=== PATIENT | male | born 1950 ===

== ENCOUNTER 2018-03-08 22:39 | Inpatient (IN) | payer MEDICARE ==
[2018-03-08 22:39] VITALS: BMI 32.5
--- NOTE | 2018-03-08 23:39 | ED PDOC ---
HPI: Psych/Substance Abuse <Miryam,Barb Y - Last Filed: 03/09/18 02:32> Chief Complaint (Provider): paranoia Onset/Duration Of Symptoms: Sudden Onset Current Symptoms Are (Timing): Still Present Additional Complaint(s): Pt is poor historian due to flight of ideas and tangential thought Presents today worried about someone trying to come after him for money Denies suicidal or homicidal ideation No psychiatric history <She Willett - Last Filed: 03/09/18 10:42> Time Seen by Provider: 03/08/18 22:58 Chief Complaint (Nursing): Psychiatric Evaluation Past Medical History Vital Signs: Last Vital Signs Temp 98.3 F 03/08/18 22:42 Pulse 90 03/08/18 22:42 Resp 18 03/08/18 22:42 BP 142/89 03/08/18 22:42 Pulse Ox 98 03/09/18 00:29 <Barb Witt Y - Last Filed: 03/09/18 02:32> Reviewed: Historical Data, Nursing Documentation, Vital Signs Vital Signs: Last Vital Signs Temp 98.3 F 03/08/18 22:42 Pulse 90 03/08/18 22:42 Resp 18 03/08/18 22:42 BP 142/89 03/08/18 22:42 Pulse Ox 98 03/08/18 22:42 - Medical History PMH: Arthritis (right knee), Diabetes, Gastritis, HTN, Hypercholesterolemia, Chronic Kidney Disease (renal insufficiency) - Surgical History Surgical History: Endoscopy - Family History Family History: States: Unknown Family Hx - Social History Current smoker - smoking cessation education provided: No Alcohol: Occasional Drugs: Denies - Immunization History Hx Tetanus Toxoid Vaccination: No Hx Influenza Vaccination: No Hx Pneumococcal Vaccination: Yes <She Willett - Last Filed: 03/09/18 10:42> - Home Medications Home Medications: Ambulatory Orders Medication Instructions Recorded Allopurinol [Zyloprim] 100 mg PO DAILY 02/22/18 Aspirin [Ecotrin] 81 mg PO DAILY 02/22/18 Ergocalciferol (Vitamin D2) 50,000 unit PO DAILY 02/22/18 [Vitamin D2] Gabapentin 300 mg PO Q12 02/22/18 Icosapent Ethyl [Vascepa] 1 gm PO BID 05/31/18 Insulin Glargine,Hum.rec.anlog 20 unit SQ ACB 02/22/18 [Adrianeaglana Roepen U-100] Loratadine [Claritin] 10 mg PO DAILY PRN 02/22/18 Simvastatin 5 mg PO DAILY 02/22/18 Valsartan [Diovan] 320 mg PO DAILY 02/22/18 Esomeprazole Sodium [Nexium I.v] 40 mg PO DAILY 03/09/18 Omeprazole [Omeprazole] 20 mg PO DAILY 03/09/18 Tamsulosin [Flomax] 0.4 mg PO DAILY 03/09/18 - Allergies Allergies/Adverse Reactions: Allergies Allergy/AdvReac Type Severity Reaction Status Date / Time No Known Allergies Allergy Verified 09/10/14 12:09 Review of Systems ROS Statement: Except As Marked, All Systems Reviewed And Found Negative Review Of Systems: ROS cannot be obtained secondary to pt's inabilty to answer questions. <She Willett J - Last Filed: 03/09/18 10:42> Physical Exam - Reviewed Nursing Documentation Reviewed: Yes Vital Signs Reviewed: Yes - Physical Exam Appears: Positive for: In Acute Distress (acute psychiatric distress) Head Exam: Positive for: ATRAUMATIC, NORMOCEPHALIC Skin: Positive for: Warm, Dry Eye Exam: Positive for: EOMI, PERRL ENT: Negative for: Pharyngeal Erythema, Tonsillar Exudate Neck: Positive for: Painless ROM, Supple Cardiovascular/Chest: Positive for: Regular Rate, Rhythm, Chest Non Tender, Edema. Negative for: Murmur Respiratory: Positive for: Normal Breath Sounds. Negative for: Accessory Muscle Use, Wheezing, Respiratory Distress Gastrointestinal/Abdominal: Positive for: Soft. Negative for: Tenderness, Mass , Distended, Guarding Back: Positive for: Normal Inspection. Negative for: Decreased ROM Extremity: Positive for: Normal ROM, Pedal Edema. Negative for: Calf Tenderness , Deformity Lymphatic: Negative for: Adenopathy Neurologic/Psych: Positive for: Alert, Oriented (x2), Mood/Affect (excited mood and anxious affect). Negative for: Motor/Sensory Deficits <She Willett - Last Filed: 03/09/18 10:42> - Laboratory Results Result Diagrams: 03/08/18 23:51 03/08/18 23:51 <Barb Witt - Last Filed: 03/09/18 02:32> - Laboratory Results Result Diagrams: 03/08/18 23:51 03/09/18 08:28 - ECG O2 Sat by Pulse Oximetry: 98 Pulse Ox Interpretation: Normal - Progress ED Course And Treament: EXAM: CT Head Without Intravenous Contrast EXAM DATE/TIME: 03/08/2018 11:16 PM CLINICAL HISTORY: 68 years old, male; Signs and symptoms; Altered mental status/memory loss TECHNIQUE: Axial computed tomography images of the head/brain without intravenous contrast. All CT scans at this facility use one or more dose reduction techniques, viz.: automated exposure control; ma/kV adjustment per patient size (including targeted exams where dose is matched to indication; i.e. head); or iterative reconstruction technique. COMPARISON: CT Head 11/05/2008 (no report available at the time of this interpretation) FINDINGS: Brain: No acute intracranial hemorrhage. No abnormal extra-axial fluid collection. No herniation. Patent basal cisterns. Redemonstrated parenchymal atrophy concordant with the patient's age, mildly progressed since the prior study. Preserved alejandro-white matter differentiation. No evidence of acute ischemia. No evident intracranial mass. Ventricles: Redemonstrated compensatory enlargement of the ventricles concordant with the parenchymal atrophy. Bones/joints: No evident acute fracture or suspicious osseous lesion. Sinuses: Near complete opacification of the left maxillary sinus, including an air-fluid level and a small amount of high attenuation material in the sinus. Near complete opacification of the ethmoid air cells. Moderate mucosal thickening in the right maxillary sinus and both frontal sinuses. The paranasal sinuses were clear on the prior study. Mastoid air cells: The mastoid air cells are clear. Orbits: No evident acute abnormality of the intraorbital contents. Interval bilateral cataract surgery. Soft tissues: No acute findings. IMPRESSION: 1. No evident acute intracranial abnormality. Non-acute intracranial findings as described above. 2. Acute ethmoid and left maxillary sinusitis. High attenuation material in the left maxillary sinus may be inspissated secretions but fungal infection or a small amount of acute intrasinus hemorrhage is not excluded. 3. Moderate mucosal thickening in the right maxillary sinus and both frontal sinuses. Thank you for allowing us to participate in the care of your patient. Dictated and Authenticated by: Saritha Whitehead MD 03/09/2018 12:26 AM Eastern Time ([place] & [place]) Labs demonstrate renal insufficiency, c/w previous history No emergently significant abnormalities Pt medically stable for psychiatric evaluation and admission if necessary <She Willett - Last Filed: 03/09/18 10:42> Disposition <Barb Witt - Last Filed: 03/09/18 02:32> - Disposition Disposition: Transfer of Care Disposition Time: 00:00 Patient Signed Over To: Barb Witt Handoff Comments: Pending crisis eval and final ER disposition <She Willett - Last Filed: 03/09/18 10:42> - Clinical Impression Clinical Impression: Anxiety - Disposition Condition: STABLE
[2018-03-08 23:55] LABS: BASO # 0.1 K/uL (0.0-0.2); BASO % 0.8 % (0.0-2.0); EOS # 0.1 K/uL (0.0-0.7); EOS % 0.9 % (0.0-4.0); HEMOGLOBIN 13.4 g/dL (12.0-18.0); LYMPH # 1.5 K/uL (1.0-4.3); LYMPH % 15.3 % (20.0-40.0); MEAN CORPUSCULAR HEMOGLOBIN 30.2 pg (27.0-31.0); MEAN CORPUSCULAR HGB CONC 32.8 g/dL (33.0-37.0); MEAN PLATELET VOLUME 10.6 fl (7.2-11.7); MONO # 0.7 K/uL (0.0-0.8); MONO % 7.6 % (0.0-10.0); NEUT # 7.2 K/uL (1.8-7.0); NEUT % 75.4 % (50.0-75.0); NRBC % 0.1 % (0.0-0.0); RBC 4.45 Mil/uL (4.40-5.90); RED CELL DISTRIBUTION WIDTH 12.9 % (11.5-14.5); WHITE BLOOD COUNT 9.6 K/uL (4.8-10.8)
[2018-03-09 00:05] LABS: ALB/GLOB RATIO 1.2 (1.0-2.1); ALBUMIN 3.9 g/dL (3.5-5.0); ALT/SGPT 37 U/L (21-72); AST/SGOT 37 U/L (17-59); BLOOD UREA NITROGEN 34 mg/dl (9-20); CALCIUM 9.1 mg/dL (8.4-10.2); GFR AFRICAN-AMERICAN 31; GFR NON-AFRICAN AMERICAN 26
--- NOTE | 2018-03-09 03:12 | ED PDOC ---
- Laboratory Results Result Diagrams: 03/08/18 23:51 03/09/18 08:28 - ECG O2 Sat by Pulse Oximetry: 98 Medical Decision Making Medical Decision Making: signed to myself pending crisis eval. pt accepted to [facility] by crisis. Disposition - Clinical Impression Clinical Impression: Anxiety - POA Present On Arrival: None - Disposition Disposition: Admitted as In-Patient Disposition Time: 00:00 Condition: STABLE
[2018-03-09 04:14] LABS: BARBITURATES, UR NEGATIVE (NEGATIVE); BENZODIAZEPINES, UR NEGATIVE (NEGATIVE); OPIATES, UR NEGATIVE (NEGATIVE); PHENCYCLIDINE, UR NEGATIVE (NEGATIVE)
[2018-03-09 04:50] VITALS: O2SAT 98
[2018-03-09] MEDS ORDERED: Alum-Mag Hydrox-Simethicone Susp (30 mL) PO PRN (04:50)
[2018-03-09] MEDS ORDERED: Magnesium Hydroxide Susp 30 ml UD PO PRN (04:50)
[2018-03-09] MEDS ORDERED: Bismuth Subsalicylate 262 mg/15 ml Sus (240 ml) PO PRN (04:50)
--- NOTE | 2018-03-09 05:05 | PCM.BM ---
<Alex Brambila P - Last Filed: 03/09/18 05:04> Treatment Plan Problems - Problems identified on initial assessmt Delusions Date Initiated: 03/09/18 Time Initiated: 05:04 Assessment reference: NA Status: Active Treatment assets and liabiliti Patient Assests: cooperative, negotiates basic needs Patient Liabilities: relationship conflicts, medical problems, imparied memory - Milieu Protocol Maintain good personal hygiene: daily Encourage regular showers, daily Remind patient to perform daily oral care, daily Assist patient to perform ADL's Conduct patient checks and document Observation sheet: Q15 minutes Maintain personal safety: every shift Educate patient to report safety concerns to staff, every shift Monitor environment for contraband/sharps Medication safety: Monitor for expected outcome, potential side effects: every shift, Assess barriers to learning: every shift, Assess readiness for medication education: every shift <Silvia Mathur - Last Filed: 03/09/18 13:15> - Diagnosis (1) Unspecified psychosis Status: Acute Interventions: Medication management, Individual and group therapy, Psychoeducation 03/09/18 13:16 <Breanna Brown M - Last Filed: 03/12/18 12:23> Family Contact Family contact: Patient agrees to contact, Family has been contacted by patient , Telephone contact initiated by staff Family contact name: Brennan Bob (brother) Family contacted how many times per week?: 2 Family contact comment: Pt reported he cannot recall his telephone number; however, requested that administrative underwriter contact his sister, Nicole for the number. - Goals for Treatment Patient goals for treatment: Pt to be encouraged to attend activity and clinical groups 3-5x per week to decrease symptoms of paranoia, delusions and employ reality testing. Pt to be encouraged to participate in group milieu to develop coping skills to reduce psychiatric hospitalizations and further decompensation. Coordinate discharge resources needs by providing referral for psychiatric treatment follow up in the community. Discharge/Continuing Care - Education Needs Education Needs: Family Medication, Family Diagnosis/Disease Process, Family Coping Skills, Family Community resources, Family Aftercare Safety Plan, Patient Medication, Patient Diagnosis/Disease Process, Patient Coping Skills, Patient Community resources, Patient Aftercare Safety Plan - Discharge Discharge Criteria: Tolerates medication w/o severe side effects, Free of paranoid thoughts, Free of agitation, Normal sleep pattern, Ability to care for self, Reduction of target symptoms Discharge to:: Home - Additional Comments 03/12/18 12:14 Pt seen and discussed in team meeting. Reason for hospitalization reviewed and discussed. Pt unable to state who referred him to the ED. Pt presented as hyper- verbal, loud and pressure speech. Pt is easily distracted and poor concentration. Pt required frequent prompting and re-direction to remain on topic. Pt talked about drug dealers that came from [place] and "maybe" want to kill him. Pt talked about having special connections with [facility], [employer] and the government in [facility]. Pt also talked about wanting to change the locks in his apartment. Pt reported that other people in the building are looking at him "dirty" because the drug dealers believe he is a snitch. Pt reported he did not have a psychiatrist prior to hospitalization. Pt stated "the best psychiatrist is myself." Pt's medical and social issues reviewed and discussed. Pt's medications reviewed and discussed. Attending MD will adjust medications per clinical presentation. Please refer to MD progress note for additional information. Tx plan reviewed and dpt is agreeable. Pt verbalized agreement to medication adjustment and to administrative underwriter contacting his brother, Brennan for additional collateral information. Pt reported he mcfarlane snot recall his brothers contact information; however, requested that administrative underwriter contact his sister, Nicole for his brothers number. Nicole can be reached at ). SW will continue to follow case. - Treatment Team Participation Discussed with Family/SO: No Was Patient/Family/SO present at Treatment Team Meeting: Yes
[2018-03-09] MEDS: Insulin Regular 100 units/ml SC SCH ×4 (08:34→21:15)
[2018-03-09 08:55] LABS: LDL CHOLESTEROL 68 mg/dL (0-129)
[2018-03-09 09:01] LABS: T4 7.23 ug/dl (5.5-11.0)
[2018-03-09 09:04] LABS: BLOOD UREA NITROGEN 30 mg/dl (9-20); CALCIUM 9.4 mg/dL (8.4-10.2); GFR AFRICAN-AMERICAN 38; GFR NON-AFRICAN AMERICAN 31; HDL CHOLESTEROL 53 MG/DL (30-70)
[2018-03-09 09:19] LABS: FERRITIN 86.1 ng/Ml (17.9-464)
--- NOTE | 2018-03-09 10:19 | CT ---
PROCEDURE: CT HEAD WITHOUT CONTRAST. HISTORY: altered mental status COMPARISON: Noncontrast head CT 11/05/2008. TECHNIQUE: Axial computed tomography images were obtained through the head/brain without intravenous contrast. Radiation dose: Total exam DLP = 969.02 mGy-cm. This CT exam was performed using one or more of the following dose reduction techniques: Automated exposure control, adjustment of the mA and/or kV according to patient size, and/or use of iterative reconstruction technique. FINDINGS: HEMORRHAGE: No intracranial hemorrhage. BRAIN: The alejandro-white matter differentiation is well preserved once again. There is no mass effect or definitive edema pattern appreciated including the cortex. Mild expansion of the ventriculosulcal and cisternal spaces is reiterated representing stable diffuse cerebral atrophy. No suspicious extra-axial fluid collection is identified in the midline brain anatomy appears grossly nonfocal as imaged. VENTRICLES: Unremarkable. No hydrocephalus. CALVARIUM: Unremarkable. PARANASAL SINUSES: Patient is again seen to be status post bilateral nasal antrostomies now identified with extensive multifocal ethmoid sinusitis identified and moderate to severe left maxillary sinus disease present. Underlying mucosal thickening or mucoid material is seen at the bilateral maxillary sinuses as well with the right frontal sinus minimally affected. MASTOID AIR CELLS: Unremarkable as visualized. No inflammatory changes. OTHER FINDINGS: None. IMPRESSION: Stable limited diffuse cerebral atrophy reiterated with no definite interval acute intracranial findings by standard CT criteria. Incidental, interval bilateral nasal antrostomies with bilateral severe ethmoid sinusitis and moderate severe left maxillary sinus disease. Limited sinus disease is seen at the right maxillary and frontal sinuses. Concordant preliminary report from [facility], 03/09/2018.
[2018-03-09] MEDS: Pantoprazole 20 mg EC Tab PO SCH (10:57)
--- NOTE | 2018-03-09 11:08 | CARD ---
APPROVED REPORT EKG Measurement Heart [id number] <Conclusion> Normal sinus rhythm Normal ECG
--- NOTE | 2018-03-09 12:42 | PCM.PSYCH ---
Initial Psychiatric Evaluation - Initial Psychiatric Evaluation Type of Admission: Voluntary Legal Status: Capacity Chief Complaint (in patient's own words): "Someone is trying to kill me." Patient's Reaction to Hospitalization: HPI: 68 yo [place] male, presents with paranoid ideations that someone if trying to kill him. He reports receiving a phone call that he owed $250 and now thinks that people are out to kill him. He does not know who these people are, but thinks they may be some local drug dealers. He talks very loudly, w/ pressured speech and is circumstantial and tangential at times. He denies feeling depressed, but reports feeling anxiety due to these perceived threats. He also reports that he has many connections, including knowing a local mayor and connections within the [facility]. He denies AH/VH/SI /HI. PPHx: Denies past psychiatric history PMHx: DM, HLD, GERD, BPH, Gout ALL: NKDA FHx: Denies family h/o mental illness SHx: From [place], lives alone, retired bus/fork truck driver, denies current drug/etoh/cig use, but reports that he used cocaine 6 months ago Current Medications: Active Medications Generic Name Dose Route Start Last Admin Trade Name Freq PRN Reason Stop Dose Admin Acetaminophen 650 mg 03/09/18 04:50 Tylenol 325mg Tab PO Q4 PRN Pain, moderate (4-7) Al Hydrox/Mg Hydrox/Simethicone 30 ml 03/09/18 04:50 Maalox Plus 30 Ml PO Q4 PRN Dyspepsia Allopurinol 100 mg 03/09/18 09:00 03/09/18 10:58 Zyloprim PO 100 mg DAILY JEREMIE Administration Aspirin 81 mg 03/09/18 09:00 03/09/18 10:56 Ecotrin PO 81 mg DAILY JEREMIE Administration Bismuth Subsalicylate 524 mg 03/09/18 04:50 Pepto-Bismol PO Q4 PRN Diarrhea Ergocalciferol 1 cap 03/09/18 12:30 Drisdol 50,000 Intl Units Cap PO FRI JEREMIE Gabapentin 300 mg 03/09/18 09:00 03/09/18 11:01 Neurontin PO 300 mg Q12 JEREMIE Administration Insulin Detemir 20 units 03/09/18 22:00 Levemir SC HS JEREMIE Insulin Human Regular 0 units 03/09/18 07:30 03/09/18 12:29 Humulin R SC 1 u ACHS JEREMIE Administration Protocol Loratadine 10 mg 03/09/18 05:22 Claritin PO DAILY PRN Allergy symptoms Lorazepam 0.5 mg 03/09/18 04:50 Ativan PO 03/23/18 04:51 HS PRN Insomnia Lorazepam 0.5 mg 03/09/18 04:50 Ativan PO 03/23/18 04:51 Q6 PRN Anixety/Agitation Magnesium Hydroxide 30 ml 03/09/18 04:50 Milk Of Magnesia PO HS PRN Constipation Pantoprazole Sodium 20 mg 03/09/18 09:00 03/09/18 10:57 Protonix Ec Tab PO 20 mg DAILY JEREMIE Administration Pravastatin Sodium 10 mg 03/09/18 12:45 Pravachol PO DAILY JEREMIE Tamsulosin HCl 0.4 mg 03/09/18 09:00 03/09/18 10:56 Flomax PO 0.4 mg DAILY JEREMIE Administration Valsartan 320 mg 03/09/18 09:00 03/09/18 10:55 Diovan PO 320 mg DAILY JEREMIE Administration Past Psychiatric History - Past Psychiatric History Previous Treatment History: None Pertinent Medical Hx (Current Medical&Sleep Prob, Allergies): Allergies Allergy/AdvReac Type Severity Reaction Status Date / Time No Known Allergies Allergy Verified 09/10/14 12:09 Allopurinol [Zyloprim] 100 mg PO DAILY 02/22/18 Aspirin [Ecotrin] 81 mg PO DAILY 02/22/18 Ergocalciferol (Vitamin D2) [Vitamin D2] 50,000 unit PO DAILY 02/22/18 Gabapentin 300 mg PO Q12 02/22/18 Icosapent Ethyl [Vascepa] 1 gm PO BID 02/22/18 Insulin Glargine,Hum.rec.anlog [Basaglar Kwikpen U-100] 20 unit SQ ACB 02/22/18 Loratadine [Claritin] 10 mg PO DAILY PRN 02/22/18 Simvastatin 5 mg PO DAILY 02/22/18 Valsartan [Diovan] 320 mg PO DAILY 02/22/18 Esomeprazole Sodium [Nexium I.v] 40 mg PO DAILY 03/09/18 Omeprazole [Omeprazole] 20 mg PO DAILY 03/09/18 Tamsulosin [Flomax] 0.4 mg PO DAILY 03/09/18 Review of Systems - Psychiatric Psychiatric: Abnormal Sleep Pattern, Behavioral Changes, Difficulty Concentrating, Irritability, Memory Loss, Mood Swings, Paranoia Mental Status Examination - Personal Presentation Personal Presentation: Looks stated age - Affect Affect: Other (Labile) - Motor Activity Motor Activity: Psychomotor Agitation - Reliability in Providing Information Reliability in Providing Information: Poor, due to alteration in thoughts - Speech Speech: Disorganized, Irrelevant, Tangential - Mood Mood: Neutral - Formal Thought Process Formal Thought Process: Delusions, Paranoia, Loosening of associations, Flight of ideas, Circumstantial - Hallucinations/Delusions Additional comments: Denies AH/VH; +Paranoia and possible grandiose delusions - Obsessions/Compulsions Obsessions: No Compulsions: No - Cognitive Functions Orientation: Person, Place, Situation, Time Sensorium: Alert Judgement: Imparied, as evidence by: Lack of insight into illness Memory: Recent intact, as evidence by: Ability to recall events of the day, Remote impaired as evidenced by: Inability to recall sig life events, Remote impaired as evidenced by: Inability to recall historical events - Risk Risk: Diminished functioning - Strength & Assets Inventory Strength & Assets Inventory: Cooperative - Limitations Limitations: Living alone, Decreased memory, recent DSM 5 DX - DSM 5 DSM 5 Diagnosis: Psychosis NOS; r/o Mood Disorder; r/o Neurocognitive Impairment - Recommended/Plan of Treatment Treatment Recommendations and Plan of Treatment: Psychosis NOS; r/o Mood Disorder; r/o Neurocognitive Impairment -Admit to geriatric psychiatry unit -Individual and group therapy -Medicine consult -Start Risperdal 0.5 mg PO HS -Obtain collateral history -Disposition planning Projected ELOS: 7-10 days Discharge Plan and Discharge Criteria: Discharge when patient is psychiatrically stable - Smoking Cessation Smoking Cessation Initiated: No Reason for not providing: Not indicated
--- NOTE | 2018-03-09 13:28 | CP.PCM.CON ---
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 He denies any history of psychiatric problems. He currently has no complaints. Patient denies chest pain , shortness of breath, fevers, chills, nausea, vomiting, diarrhea, headache. All of the patient's questions were answered at the bedside. Review of Systems - Review of Systems Review of Systems: A 12 point review of systems was conducted and found to be negative other than what was mentioned in the HPI. Past Patient History - Infectious Disease Hx of Infectious Diseases: None - Past Medical History & Family History Past Medical History?: Yes Past Family History: Reviewed and not pertinent - Past Social History Smoking Status: Never Smoked Alcohol: Occasional Drugs: Denies - CARDIAC Hx Hypercholesterolemia: Yes Hx Hypertension: Yes - PULMONARY Hx Tuberculosis: No - NEUROLOGICAL HX Cerebrovascular Accident: No Hx Seizures: No - HEENT Hx HEENT Problems: Yes (Nasal surgery) - RENAL Hx Chronic Kidney Disease: Yes (renal insufficiency) - ENDOCRINE/METABOLIC Hx Endocrine Disorders: Yes (DM) Hx Diabetes Mellitus Type 2: Yes - HEMATOLOGICAL/ONCOLOGICAL Hx Cancer: No Hx Human Immunodeficiency Virus (HIV): No - INTEGUMENTARY Hx Dermatological Problems: No - MUSCULOSKELETAL/RHEUMATOLOGICAL Hx Arthritis: Yes (right knee) - GASTROINTESTINAL Hx Gastritis: Yes - GENITOURINARY/GYNECOLOGICAL Hx Sexually Transmitted Disorders: No - PSYCHIATRIC Hx Psychophysiologic Disorder: No - SURGICAL HISTORY Hx Surgeries: Yes Hx Cataract Extraction: Yes Hx Gastric Bypass Surgery: Yes (Gastric Sleeve) - ANESTHESIA Hx Anesthesia: Yes Hx Anesthesia Reactions: No Hx Malignant Hyperthermia: No Meds Allergies/Adverse Reactions: Allergies Allergy/AdvReac Type Severity Reaction Status Date / Time No Known Allergies Allergy Verified 09/10/14 12:09 - Medications Medications: Current Medications Acetaminophen (Tylenol 325mg Tab) 650 mg PO Q4 PRN PRN Reason: Pain, moderate (4-7) Al Hydrox/Mg Hydrox/Simethicone (Maalox Plus 30 Ml) 30 ml PO Q4 PRN PRN Reason: Dyspepsia Allopurinol (Zyloprim) 100 mg PO DAILY [facility] Last Admin: 03/09/18 10:58 Dose: 100 mg Aspirin (Ecotrin) 81 mg PO DAILY [facility] Last Admin: 03/09/18 10:56 Dose: 81 mg Bismuth Subsalicylate (Pepto-Bismol) 524 mg PO Q4 PRN PRN Reason: Diarrhea Ergocalciferol (Drisdol 50,000 Intl Units Cap) 1 cap PO FRI [facility] Gabapentin (Neurontin) 300 mg PO Q12 [facility] Last Admin: 03/09/18 11:01 Dose: 300 mg Insulin Detemir (Levemir) 20 units SC HS [facility] Insulin Human Regular (Humulin R) 0 units SC ACHS [facility] PRN Reason: Protocol Last Admin: 03/09/18 12:29 Dose: 1 u Loratadine (Claritin) 10 mg PO DAILY PRN PRN Reason: Allergy symptoms Lorazepam (Ativan) 0.5 mg PO HS PRN PRN Reason: Insomnia Stop: 03/23/18 04:51 Lorazepam (Ativan) 0.5 mg PO Q6 PRN PRN Reason: Anixety/Agitation Stop: 03/23/18 04:51 Magnesium Hydroxide (Milk Of Magnesia) 30 ml PO HS PRN PRN Reason: Constipation Pantoprazole Sodium (Protonix Ec Tab) 20 mg PO DAILY [facility] Last Admin: 03/09/18 10:57 Dose: 20 mg Pravastatin Sodium (Pravachol) 10 mg PO DAILY [facility] Risperidone (Risperdal M-Tab) 0.5 mg PO HS [facility] Tamsulosin HCl (Flomax) 0.4 mg PO DAILY [facility] Last Admin: 03/09/18 10:56 Dose: 0.4 mg Valsartan (Diovan) 320 mg PO DAILY [facility] Last Admin: 03/09/18 10:55 Dose: 320 mg Physical Exam - Additional Findings Additional findings: Physical exam: Constitutional- cooperative, awake, alert Head- NCAT, PERRL Eye- PERRL, EOMI ENT- poor dental hygeine, otherwise normal exam, MMM. Neck- normal inspection, supple, no JVD Respiratory- CTAB, no wheezes rales rhonchi Cardiovascular- RRR, +S1, +S2 no MRG GI/Abdominal- normal bowel sounds, soft, no mass, no hsm Skin- warm, dry Extremities Exam- normal capillary refill, normal inspection Neurological Exam- alert, awake, oriented Psych- normal mood, bizarre affect, pressed speech, tangential thought Results - Vital Signs Recent Vital Signs: Last Vital Signs Temp 97.3 F L 03/09/18 05:47 Pulse 98 H 03/09/18 05:47 Resp 19 03/09/18 05:47 BP 158/89 H 03/09/18 05:47 Pulse Ox 98 03/09/18 10:42 - Labs Result Diagrams: 03/08/18 23:51 03/09/18 08:28 Labs: Laboratory Results - last 24 hr 03/08/18 03/08/18 03/08/18 23:30 23:51 23:51 WBC 9.6 RBC 4.45 Hgb 13.4 Hct 40.9 MCV 92.0 MCH 30.2 MCHC 32.8 L RDW 12.9 Plt Count 196 MPV 10.6 Neut % (Auto) 75.4 H Lymph % (Auto) 15.3 L Garfield % (Auto) 7.6 Eos % (Auto) 0.9 Baso % (Auto) 0.8 Neut # (Auto) 7.2 H Lymph # (Auto) 1.5 Garfield # (Auto) 0.7 Eos # (Auto) 0.1 Baso # (Auto) 0.1 Sodium 137 Potassium 5.0 Chloride 105 Carbon Dioxide 20 L Anion Gap 17 BUN 34 H Creatinine 2.5 H Est GFR ( Amer) 31 Est GFR (Non-Af Amer) 26 POC Glucose (mg/dL) 92 Random Glucose 105 Calcium 9.1 Phosphorus 4.1 Magnesium 2.2 Ferritin Total Bilirubin 0.8 AST 37 ALT 37 Alkaline Phosphatase 94 Troponin I < 0.0120 Total Protein 7.4 Albumin 3.9 Globulin 3.4 Albumin/Globulin Ratio 1.2 Triglycerides Cholesterol LDL Cholesterol Direct HDL Cholesterol Vitamin B12 Free T4 Thyroxine (T4) TSH 3rd Generation 1.28 Urine Opiates Screen Urine Methadone Screen Ur Barbiturates Screen Ur Phencyclidine Scrn Ur Amphetamines Screen U Benzodiazepines Scrn U Oth Cocaine Metabols U Cannabinoids Screen Alcohol, Quantitative < 10 03/09/18 03/09/18 03/09/18 03:28 03:42 05:54 WBC RBC Hgb Hct MCV MCH MCHC RDW Plt Count MPV Neut % (Auto) Lymph % (Auto) Garfield % (Auto) Eos % (Auto) Baso % (Auto) Neut # (Auto) Lymph # (Auto) Garfield # (Auto) Eos # (Auto) Baso # (Auto) Sodium Potassium Chloride Carbon Dioxide Anion Gap BUN Creatinine Est GFR ( Amer) Est GFR (Non-Af Amer) POC Glucose (mg/dL) 89 153 H Random Glucose Calcium Phosphorus Magnesium Ferritin Total Bilirubin AST ALT Alkaline Phosphatase Troponin I Total Protein Albumin Globulin Albumin/Globulin Ratio Triglycerides Cholesterol LDL Cholesterol Direct HDL Cholesterol Vitamin B12 Free T4 Thyroxine (T4) TSH 3rd Generation Urine Opiates Screen Negative Urine Methadone Screen Negative Ur Barbiturates Screen Negative Ur Phencyclidine Scrn Negative Ur Amphetamines Screen Negative U Benzodiazepines Scrn Negative U Oth Cocaine Metabols Negative U Cannabinoids Screen Negative Alcohol, Quantitative 03/09/18 03/09/18 03/09/18 08:28 08:28 11:00 WBC RBC Hgb Hct MCV MCH MCHC RDW Plt Count MPV Neut % (Auto) Lymph % (Auto) Garfield % (Auto) Eos % (Auto) Baso % (Auto) Neut # (Auto) Lymph # (Auto) Garfield # (Auto) Eos # (Auto) Baso # (Auto) Sodium 142 Potassium 5.1 H Chloride 108 H Carbon Dioxide 25 Anion Gap 14 BUN 30 H Creatinine 2.1 H Est GFR ( Amer) 38 Est GFR (Non-Af Amer) 31 POC Glucose (mg/dL) 159 H Random Glucose 106 Calcium 9.4 Phosphorus Magnesium Ferritin 86.1 Total Bilirubin AST ALT Alkaline Phosphatase Troponin I Total Protein Albumin Globulin Albumin/Globulin Ratio Triglycerides 58 D Cholesterol 152 LDL Cholesterol Direct 68 HDL Cholesterol 53 Vitamin B12 > 1000 H Free T4 1.12 Thyroxine (T4) 7.23 TSH 3rd Generation 1.23 Urine Opiates Screen Urine Methadone Screen Ur Barbiturates Screen Ur Phencyclidine Scrn Ur Amphetamines Screen U Benzodiazepines Scrn U Oth Cocaine Metabols U Cannabinoids Screen Alcohol, Quantitative Assessment & Plan - Assessment and Plan (Free Text) Plan: This is a 68 year old male with pmh of right knee arthritis, Type 2 DM, gastritis hx, essential hypertension, 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 He denies any history of psychiatric problems. He currently has no complaints. Patient denies chest pain , shortness of breath, fevers, chills, nausea, vomiting, diarrhea, headache. All of the patient's questions were answered at the bedside. 1) Manic - Management as per psych 2) Type 2 DM - Levemir 20 units SC HS - regular insulin sliding scale - Continue ASA 3) Essential hypertension - continue Diovan 320 mg po daily and titrate as necessary - chronic 4) CKD stage III due to diabetic nephropathy - At baseline - chronic - Continue Allopurinol 5) Seasonal allergies - Continue Claritin 6) Hyperlipidemia - Continue Pravastatin 20 mg po daily 7) History of gastritis - Continue Protonix 20 mg po daily - Maalox PRN 8) Mild hypokalemia 5.1 Check BMP in AM Hopefully should improve with insulin regimen
[2018-03-09] MEDS: Pravastatin Sodium 20 MG TAB PO SCH (17:09)
[2018-03-09] MEDS: Ergocalciferol 50,000 Intl Units Cap PO SCH ×2 (17:12→17:17)
[2018-03-09 18:22] LABS: FOLATE > 20.0 ng/mL
[2018-03-09] MEDS: Insulin Detemir 100 Units/ml Inj SC SCH (21:14)
[2018-03-09 21:41] LABS: URINE BILIRUBIN NEGATIVE (NEGATIVE); URINE BLOOD SMALL (NEGATIVE); URINE CLARITY CLEAR (Clear); URINE COLOR STRAW (YELLOW); URINE GLUCOSE (UA) >=500 mg/dL (Normal); URINE LEUKOCYTE ESTERASE NEG Leu/uL (Negative); URINE PROTEIN 100 mg/dL (NEGATIVE); URINE UROBILINOGEN 0.2-1.0 mg/dL (0.2-1.0)
[2018-03-09] MEDS ORDERED: Risperidone M tab 0.5MG PO SCH (22:00)
[2018-03-10] MEDS: Insulin Regular 100 units/ml SC SCH ×4 (09:17→21:20)
[2018-03-10] MEDS: Pravastatin Sodium 20 MG TAB PO SCH (09:25)
[2018-03-10] MEDS: Pantoprazole 20 mg EC Tab PO SCH (09:25)
--- NOTE | 2018-03-10 10:33 | PCM.PYCHPN ---
Psychiatric Progress Note - Psychiatric Progress Note Patient seen today, length of contact: Patient evaluated, case discussed with team, chart reviewed Patient Chief Complaint: "Someone is trying to kill me." Problems Identified/Issues Discussed: Patient continues to be paranoid and pressured about talking about paranoid delusional beliefs, including that some drug deals want to give him, that someone in the building thinks he is a snitch and that people in his building were giving him dirty looks because they heard a rumor that he was as snitch. He has pressured, rapid, loud speech. He reports difficulty sleeping at night. Denies AH/VH/SI/HI. Denies adverse effects to Risperdal. Sidewalk Inspector informed patient we would continue to titrate Risperdal. Medication Change: Yes (Increase Risperdal to 1 mg PO HS) Medical Record Reviewed: Yes Consults ordered or reviewed: Medicine consult Mental Status Examination - Cognitive Function Orientation: Person, Place, Situation, Time Attention: Poor Concentration: Poor Association: Loose Fund of Knowledge: WNL Decription of patient's judgement and insights: Poor I/J - Mood Mood: Anxious - Affect Affect: Other (Labile) - Speech Speech: Loud, Pressured - Formal Thought Process Formal Thought Process: Delusions, Paranoia, Loosening of associations, Flight of ideas, Circumstantial Psychotic Thoughts and Behaviors: +Paranoia, persecutory delusions - Suicidal Ideation Suicidal Ideation: No - Homicidal Ideation Homicidal Ideation: No Goal/Treatment Plan - Goal/Treatment Plan Need for Continued Stay: Remain at risks for inpatient hospitalization, Discharge may exacerbated symptoms, Severe functional impairment Progress Toward Problem(s) and Goals/Treatment Plan: Psychosis NOS; r/o Mood Disorder; r/o Neurocognitive Impairment -Individual and group therapy -Medicine consult -Increase Risperdal 1 mg PO HS -Obtain collateral history -Disposition planning Estimated Date of D/C: 03/15/18
[2018-03-10] MEDS: Insulin Detemir 100 Units/ml Inj SC SCH (21:20)
[2018-03-10] MEDS ORDERED: Risperidone M tab 1 MG PO SCH (22:00)
[2018-03-11] MEDS: Insulin Regular 100 units/ml SC SCH ×4 (06:46→21:22)
[2018-03-11] MEDS: Pravastatin Sodium 20 MG TAB PO SCH (09:17)
[2018-03-11] MEDS: Pantoprazole 20 mg EC Tab PO SCH (09:17)
--- NOTE | 2018-03-11 10:54 | PCM.PYCHPN ---
Psychiatric Progress Note - Psychiatric Progress Note Patient seen today, length of contact: Patient evaluated, case discussed with team, chart reviewed Patient Chief Complaint: "Someone is trying to kill me." Problems Identified/Issues Discussed: Patient continues to be paranoid and pressured about talking about paranoid delusional beliefs, including that some drug deals want to kill him, that he has to change the locks on the door to protect himself, that he has connections to a local mayor who will help him. He has pressured, rapid, loud speech. He reports difficulty sleeping at night. Denies AH/VH/SI/HI. Denies adverse effects to Risperdal. Lead Carpenter informed patient we would continue to titrate Risperdal. Medication Change: Yes (Increase Risperdal to 2 mg PO HS) Medical Record Reviewed: Yes Consults ordered or reviewed: Medicine consult Mental Status Examination - Cognitive Function Orientation: Person, Place, Situation, Time Memory: Impaired Attention: Poor Concentration: Poor Association: Loose Fund of Knowledge: WNL Decription of patient's judgement and insights: Poor I/J - Mood Mood: Anxious - Affect Affect: Other (Labile) - Speech Speech: Loud, Pressured - Formal Thought Process Formal Thought Process: Delusions, Paranoia, Loosening of associations, Flight of ideas, Circumstantial Psychotic Thoughts and Behaviors: +Paranoia, persecutory delusions - Suicidal Ideation Suicidal Ideation: No - Homicidal Ideation Homicidal Ideation: No Goal/Treatment Plan - Goal/Treatment Plan Need for Continued Stay: Remain at risks for inpatient hospitalization, Discharge may exacerbated symptoms, Severe functional impairment Progress Toward Problem(s) and Goals/Treatment Plan: Psychosis NOS; r/o Mood Disorder; r/o Neurocognitive Impairment -Individual and group therapy -Medicine consult -Increase Risperdal 2 mg PO HS -Obtain collateral history -Disposition planning Estimated Date of D/C: 03/15/18
[2018-03-11] MEDS ORDERED: guaiFENesin 200 mg/10 ml Syrup UD PO PRN (14:31)
[2018-03-11] MEDS: Insulin Detemir 100 Units/ml Inj SC SCH (21:22)
[2018-03-11] MEDS ORDERED: Risperidone M TAB 2 MG PO SCH (22:00)
[2018-03-12] MEDS: Insulin Regular 100 units/ml SC SCH ×4 (08:22→21:21)
[2018-03-12] MEDS: Pravastatin Sodium 20 MG TAB PO SCH (08:32)
[2018-03-12] MEDS: Pantoprazole 20 mg EC Tab PO SCH (08:32)
--- NOTE | 2018-03-12 10:00 | PCM.PYCHPN ---
Psychiatric Progress Note - Psychiatric Progress Note Patient seen today, length of contact: Patient evaluated, case discussed with team, chart reviewed Patient Chief Complaint: "Someone is trying to kill me." Problems Identified/Issues Discussed: Patient continues to be paranoid, w/ persecutory delusions that people want to kill him and grandiose beliefs that he has special connections within the government. He continues to have pressured speech and wants to talk continuously once engaged in conversation. Denies AH/VH/SI/HI. Denies adverse effects to Risperdal. Creative Engagement Director informed patient we would continue to titrate Risperdal. Medication Change: Yes (Increase Risperdal to 3 mg PO HS) Medical Record Reviewed: Yes Consults ordered or reviewed: Medicine consult Mental Status Examination - Cognitive Function Orientation: Person, Place, Situation, Time Memory: Impaired Attention: Poor Concentration: Poor Association: Loose Fund of Knowledge: WNL Decription of patient's judgement and insights: Poor I/J - Mood Mood: Anxious - Affect Affect: Other (Labile) - Speech Speech: Loud, Pressured - Formal Thought Process Formal Thought Process: Delusions, Paranoia, Loosening of associations, Flight of ideas, Circumstantial Psychotic Thoughts and Behaviors: +Paranoia, persecutory delusions - Suicidal Ideation Suicidal Ideation: No - Homicidal Ideation Homicidal Ideation: No Goal/Treatment Plan - Goal/Treatment Plan Need for Continued Stay: Remain at risks for inpatient hospitalization, Discharge may exacerbated symptoms, Severe functional impairment Progress Toward Problem(s) and Goals/Treatment Plan: Psychosis NOS; r/o Mood Disorder; r/o Neurocognitive Impairment -Individual and group therapy -Medicine consult -Increase Risperdal to 3 mg PO HS -Obtain collateral history -Disposition planning Estimated Date of D/C: 03/16/18
[2018-03-12] MEDS: Insulin Detemir 100 Units/ml Inj SC SCH (21:22)
[2018-03-13] MEDS: Pantoprazole 20 mg EC Tab PO SCH (08:14)
[2018-03-13] MEDS: Insulin Regular 100 units/ml SC SCH ×4 (08:15→21:24)
--- NOTE | 2018-03-13 08:42 | CP.PCM.CON ---
History of Present Illness - History of Present Illness History of Present Illness: Pt is a 68 year old male admitted to [facility] and referred to the director underwriter sales for evaluation. On the DRS, pt scored an overall score of 134. Pt scored within normal limits on Attention, Construction, Memory, Initiation and Conceptualization tasks. Overall 134 Attention 36 Construction 4 Conceptualizaiton 35 Initiation 35 Memory 24 Cognitive skills were found to be intact on testing. Thank you for this referral, Dr. Morris Past Patient History - Infectious Disease Hx of Infectious Diseases: None - Past Medical History & Family History Past Medical History?: Yes Past Family History: Reviewed and not pertinent - Past Social History Smoking Status: Never Smoked Alcohol: Occasional Drugs: Denies - CARDIAC Hx Hypercholesterolemia: Yes Hx Hypertension: Yes - PULMONARY Hx Tuberculosis: No - NEUROLOGICAL HX Cerebrovascular Accident: No Hx Seizures: No - HEENT Hx HEENT Problems: Yes (Nasal surgery) - RENAL Hx Chronic Kidney Disease: Yes (renal insufficiency) - ENDOCRINE/METABOLIC Hx Endocrine Disorders: Yes (DM) Hx Diabetes Mellitus Type 2: Yes - HEMATOLOGICAL/ONCOLOGICAL Hx Cancer: No Hx Human Immunodeficiency Virus (HIV): No - INTEGUMENTARY Hx Dermatological Problems: No - MUSCULOSKELETAL/RHEUMATOLOGICAL Hx Arthritis: Yes (right knee) - GASTROINTESTINAL Hx Gastritis: Yes - GENITOURINARY/GYNECOLOGICAL Hx Sexually Transmitted Disorders: No - PSYCHIATRIC Hx Psychophysiologic Disorder: No - SURGICAL HISTORY Hx Surgeries: Yes Hx Cataract Extraction: Yes Hx Gastric Bypass Surgery: Yes (Gastric Sleeve) - ANESTHESIA Hx Anesthesia: Yes Hx Anesthesia Reactions: No Hx Malignant Hyperthermia: No Meds Allergies/Adverse Reactions: Allergies Allergy/AdvReac Type Severity Reaction Status Date / Time No Known Allergies Allergy Verified 09/10/14 12:09 - Medications Medications: Current Medications Acetaminophen (Tylenol 325mg Tab) 650 mg PO Q4 PRN PRN Reason: Pain, moderate (4-7) Al Hydrox/Mg Hydrox/Simethicone (Maalox Plus 30 Ml) 30 ml PO Q4 PRN PRN Reason: Dyspepsia Allopurinol (Zyloprim) 100 mg PO DAILY [facility] Last Admin: 03/13/18 08:15 Dose: 100 mg Aspirin (Ecotrin) 81 mg PO DAILY [facility] Last Admin: 03/12/18 08:34 Dose: Not Given Bismuth Subsalicylate (Pepto-Bismol) 524 mg PO Q4 PRN PRN Reason: Diarrhea Ergocalciferol (Drisdol 50,000 Intl Units Cap) 1 cap PO [facility] Gabapentin (Neurontin) 300 mg PO Q12 [facility] Last Admin: 03/13/18 08:14 Dose: 300 mg Guaifenesin (Robitussin) 200 mg PO Q6 PRN PRN Reason: Cough Insulin Detemir (Levemir) 20 units SC HS [facility] Last Admin: 03/12/18 21:22 Dose: 20 unit Insulin Human Regular (Humulin R) 0 units SC [facility] PRN Reason: Protocol Last Admin: 03/13/18 08:15 Dose: Not Given Loratadine (Claritin) 10 mg PO DAILY PRN PRN Reason: Allergy symptoms Lorazepam (Ativan) 0.5 mg PO HS PRN PRN Reason: Insomnia Stop: 03/23/18 04:51 Lorazepam (Ativan) 0.5 mg PO Q6 PRN PRN Reason: Anixety/Agitation Stop: 03/23/18 04:51 Last Admin: 03/11/18 17:28 Dose: 0.5 mg Magnesium Hydroxide (Milk Of Magnesia) 30 ml PO HS PRN PRN Reason: Constipation Pantoprazole Sodium (Protonix Ec Tab) 20 mg PO DAILY [facility] Last Admin: 03/13/18 08:14 Dose: 20 mg Pravastatin Sodium (Pravachol) 10 mg PO DAILY [facility] Last Admin: 03/13/18 08:14 Dose: 10 mg Risperidone (Risperdal Tab) 3 mg PO HS [facility] Last Admin: 03/12/18 21:21 Dose: 3 mg Sodium Chloride ([place]ming Nasal [place]) 2 sprays [facility] Q4 PRN PRN Reason: Nasal congestion Tamsulosin HCl (Flomax) 0.4 mg PO DAILY [facility] Last Admin: 03/13/18 08:16 Dose: 0.4 mg Trazodone HCl (Desyrel) 50 mg PO HS PRN PRN Reason: Insomnia Valsartan (Diovan) 320 mg PO DAILY [facility] Last Admin: 03/13/18 08:16 Dose: 320 mg Results - Vital Signs Recent Vital Signs: Last Vital Signs Temp 97.5 F L 03/13/18 05:59 Pulse 93 H 03/13/18 05:59 Resp 19 03/13/18 05:59 BP 138/74 03/13/18 05:59 Pulse Ox 98 06/18/18 20:43 - Labs Result Diagrams: 03/08/18 23:51 03/09/18 08:28 Labs: Laboratory Results - last 24 hr 03/12/18 03/12/18 03/12/18 05:59 11:01 15:43 POC Glucose (mg/dL) 114 H 233 H 119 H 03/12/18 03/13/18 20:38 05:55 POC Glucose (mg/dL) 271 H 126 H
--- NOTE | 2018-03-13 09:16 | PCM.PYCHPN ---
Psychiatric Progress Note - Psychiatric Progress Note Patient seen today, length of contact: Patient evaluated, case discussed with team, chart reviewed Patient Chief Complaint: "Someone is trying to kill me." Problems Identified/Issues Discussed: Patient continues to be paranoid, but is less pressured about talking about his persecutory delusions. He is calmer and more redirectable on conversation. He continues to be loud w/ pressured speech. Denies AH/VH/SI/HI. Denies adverse effects to Risperdal. Medication Change: No Medical Record Reviewed: Yes Consults ordered or reviewed: Medicine consult Psychology consult Pt is a 68 year old male admitted to [facility] and referred to the copywriter for evaluation. On the DRS, pt scored an overall score of 134. Pt scored within normal limits on Attention, Construction, Memory, Initiation and Conceptualization tasks. Overall 134 Attention 36 Construction 4 Conceptualizaiton 35 Initiation 35 Memory 24 Cognitive skills were found to be intact on testing. Thank you for this referral, Dr. Morris Mental Status Examination - Cognitive Function Orientation: Person, Place, Situation, Time Memory: Intact Attention: WNL Concentration: WNL Association: WNL Fund of Knowledge: WN Decription of patient's judgement and insights: Improving I/J - Mood Mood: Anxious - Affect Affect: Other (Labile) - Speech Speech: Loud, Pressured - Formal Thought Process Formal Thought Process: Delusions, Paranoia, Loosening of associations, Circumstantial Psychotic Thoughts and Behaviors: +Paranoia, persecutory delusions - Suicidal Ideation Suicidal Ideation: No - Homicidal Ideation Homicidal Ideation: No Goal/Treatment Plan - Goal/Treatment Plan Need for Continued Stay: Remain at risks for inpatient hospitalization, Discharge may exacerbated symptoms, Severe functional impairment Progress Toward Problem(s) and Goals/Treatment Plan: Psychosis NOS; r/o Mood Disorder -Individual and group therapy -Medicine consult -Continue Risperdal 3 mg PO HS -Disposition planning Estimated Date of D/C: 03/16/18
[2018-03-13] MEDS: Insulin Detemir 100 Units/ml Inj SC SCH (21:24)
[2018-03-14] MEDS: Pantoprazole 20 mg EC Tab PO SCH (08:57)
[2018-03-14] MEDS: Nasal Spray(Ocean spray) NAS PRN (08:59)
[2018-03-14] MEDS: Insulin Regular 100 units/ml SC SCH ×4 (09:00→21:05)
--- NOTE | 2018-03-14 11:32 | PCM.PYCHPN ---
Psychiatric Progress Note - Psychiatric Progress Note Patient seen today, length of contact: Patient evaluated, case discussed with team, chart reviewed Patient Chief Complaint: "I'm feeling okay." Problems Identified/Issues Discussed: Patient is less paranoid, less pressured, calmer and more redirectable. He continues to have poor insight into his paranoia. Denies AH/VH/SI/HI. Denies adverse effects to Risperdal. Medication Change: No Medical Record Reviewed: Yes Consults ordered or reviewed: Medicine consult Psychology consult Pt is a 68 year old male admitted to [facility] and referred to the financial writer for evaluation. On the DRS, pt scored an overall score of 134. Pt scored within normal limits on Attention, Construction, Memory, Initiation and Conceptualization tasks. Overall 134 Attention 36 Construction 4 Conceptualizaiton 35 Initiation 35 Memory 24 Cognitive skills were found to be intact on testing. Thank you for this referral, Dr. Morris Mental Status Examination - Cognitive Function Orientation: Person, Place, Situation, Time Memory: Intact Attention: WNL Concentration: WNL Association: WNL Fund of Knowledge: WNL Decription of patient's judgement and insights: Improving I/J - Mood Mood: Anxious - Affect Affect: Broad - Speech Speech: Loud - Formal Thought Process Formal Thought Process: Paranoia, Loosening of associations, Circumstantial Psychotic Thoughts and Behaviors: +Paranoia - Suicidal Ideation Suicidal Ideation: No - Homicidal Ideation Homicidal Ideation: No Goal/Treatment Plan - Goal/Treatment Plan Need for Continued Stay: Remain at risks for inpatient hospitalization, Discharge may exacerbated symptoms, Severe functional impairment Progress Toward Problem(s) and Goals/Treatment Plan: Psychosis NOS; r/o Mood Disorder -Individual and group therapy -Medicine consult -Continue Risperdal 3 mg PO HS -Disposition planning Estimated Date of D/C: 03/16/18
[2018-03-14] MEDS: Insulin Detemir 100 Units/ml Inj SC SCH (21:01)
[2018-03-15] MEDS: Pantoprazole 20 mg EC Tab PO SCH (08:45)
[2018-03-15] MEDS: Insulin Regular 100 units/ml SC SCH ×4 (08:46→22:28)
[2018-03-15] MEDS ORDERED: Ergocalciferol 50,000 Intl Units Cap PO SCH (09:00)
--- NOTE | 2018-03-15 10:17 | PCM.PYCHPN ---
Psychiatric Progress Note - Psychiatric Progress Note Patient seen today, length of contact: Patient evaluated, case discussed with team, chart reviewed Patient Chief Complaint: "I'm feeling okay." Problems Identified/Issues Discussed: Patient is less paranoid, less pressured, calmer and more redirectable. Patient likely has mild paranoia at baseline. Denies AH/VH/SI/HI. Denies adverse effects to Risperdal. He denies ideation to harm self or others and has not had any behavioral issues on the unit. Medication Change: No Medical Record Reviewed: Yes Consults ordered or reviewed: Medicine consult Psychology consult Pt is a 68 year old male admitted to [facility] and referred to the grant writer for evaluation. On the DRS, pt scored an overall score of 134. Pt scored within normal limits on Attention, Construction, Memory, Initiation and Conceptualization tasks. Overall 134 Attention 36 Construction 4 Conceptualizaiton 35 Initiation 35 Memory 24 Cognitive skills were found to be intact on testing. Thank you for this referral, Dr. Morris Mental Status Examination - Cognitive Function Orientation: Person, Place, Situation, Time Memory: Intact Attention: WNL Concentration: WNL Association: WNL Fund of Knowledge: WNL Decription of patient's judgement and insights: Improving I/J - Mood Mood: Anxious - Affect Affect: Broad - Speech Speech: Loud - Formal Thought Process Formal Thought Process: Paranoia, Loosening of associations Psychotic Thoughts and Behaviors: +Less paranoid - Suicidal Ideation Suicidal Ideation: No - Homicidal Ideation Homicidal Ideation: No Goal/Treatment Plan - Goal/Treatment Plan Need for Continued Stay: Discharge may exacerbated symptoms Progress Toward Problem(s) and Goals/Treatment Plan: Psychosis NOS; r/o Mood Disorder; will likely discharge tomorrow as patient is improving clinically -Individual and group therapy -Medicine consult -Continue Risperdal 3 mg PO HS -Disposition planning Estimated Date of D/C: 03/16/18
[2018-03-15] MEDS: Nasal Spray(Ocean spray) NAS PRN (12:27)
[2018-03-15] MEDS: Insulin Detemir 100 Units/ml Inj SC SCH (21:47)
[2018-03-16 06:22] VITALS: RESP 19; TEMP 97.1
[2018-03-16] MEDS: Insulin Regular 100 units/ml SC SCH ×2 (08:36→12:37)
[2018-03-16] MEDS: Pantoprazole 20 mg EC Tab PO SCH (08:37)
[2018-03-16 08:40] VITALS: BP 146/77; PULSE 117
--- NOTE | 2018-03-16 08:50 | PCM.PYCHDC ---
Mental Status Examination - Mental Status Examination Orientation: Person, Place, Situation, Time Memory: Intact Mood: Neutral Affect: Broad Speech: Appropriate Attention: WNL Concentration: WNL Association: WNL Fund of Knowledge: WNL Formal Thought Process: Paranoia (Patient has mild paranoia at baseline) Description of patient's judgement and insight: Improving I/J Psychotic Thoughts and Behaviors: +mild chronic paranoia Suicidal Ideation: No Current Homicidal Ideation?: No Discharge Summary - Discharge Note Reason for Hospitalization: HPI: 68 yo [place] male, presents with paranoid ideations that someone if trying to kill him. He reports receiving a phone call that he owed $250 and now thinks that people are out to kill him. He does not know who these people are, but thinks they may be some local drug dealers. He talks very loudly, w/ pressured speech and is circumstantial and tangential at times. He denies feeling depressed, but reports feeling anxiety due to these perceived threats. He also reports that he has many connections, including knowing a local mayor and connections within the [facility]. He denies AH/VH/SI /HI. PPHx: Denies past psychiatric history PMHx: DM, HLD, GERD, BPH, Gout ALL: NKDA FHx: Denies family h/o mental illness SHx: From [place], lives alone, retired bus/truck technician, denies current drug/etoh/cig use, but reports that he used cocaine 6 months ago Laboratory Data: Abnormal Lab Results 03/15/18 03/15/18 03/15/18 11:09 15:31 20:22 POC Glucose (mg/dL) 179 H 202 H 176 H 03/16/18 05:57 POC Glucose (mg/dL) 105 Consultations:: List each consultation separately and include: 1. Reason for request. 2. Findings. 3. Follow-up Consultations: Medicine consult Psychology consult Pt is a 68 year old male admitted to [facility] and referred to the automobile service writer for evaluation. On the DRS, pt scored an overall score of 134. Pt scored within normal limits on Attention, Construction, Memory, Initiation and Conceptualization tasks. Overall 134 Attention 36 Construction 4 Conceptualizaiton 35 Initiation 35 Memory 24 Cognitive skills were found to be intact on testing. Thank you for this referral, Dr. Morris Summary of Hospital Course include:: 1. Description of specific treatment plan utilized for patients during their course of treatmen. 2. Summarize the time- course for resolution of acute symptoms and/or regressed behaviors. 3. Describe issues identified and worked on during hospitalization. 4. Describe medication utilized. 5. Describe medical problems identified and treated. 6. Reassessment of suicide risk Summary of Hospital Course: Patient was admitted to the geriatric psychiatry unit. Individual and group therapy were provided. Patient was stabilized on Risperdal 3 mg PO HS. He has improved clinically; he no longer has pressured speech and is more organized on conversation. Patient has some mild chronic paranoia, but this appears to be his baseline as confirmed by collateral obtained by his family. NO AH/VH/SI/HI. Patient is psychiatrically stable at this time to be discharged with outpatient psychiatric follow-up. - Diagnosis (1) Unspecified psychosis Current Visit: Yes Status: Acute - Final Diagnosis (DSM 5) Condition upon Discharge: STABLE DSM 5: Psychosis NOS Disposition: HOME/ ROUTINE Follow-up Treatment Plan: Psychosis NOS -Continue Risperdal 3 mg PO HS Prescriptions/Medication Reconciliation: risperiDONE [RisperDAL] 3 mg PO DAILY #30 tab - Smoking Cessation Smoking Cessation Medication prescribed: No Reason for not providing: Not indicated - Antipsychotic Medications Pt discharged on 2 or more routine antipsychotic medications: No
[2018-03-16] MEDS: Nasal Spray(Ocean spray) NAS PRN (12:58)
== END 2018-03-16 15:30 | disposition home or self-care (01) | DRG 885 ==
LOC: H.ER 22:39 → H.ERHOLD 03-09 02:07 → H.STEP 03-09 04:49
PROVIDERS: ADMIT Psychiatry & Neurology Psychiatry; ATTEND Psychiatry & Neurology Psychiatry
PROC: GZHZZZZ Group Psychotherapy (ICD-10-PCS; principal; 2018-03-09)
DX: F29 Unspecified psychosis not due to a substance or known physiological condition (principal); M17.11 Unilateral primary osteoarthritis, right knee; E11.22 Type 2 diabetes mellitus with diabetic chronic kidney disease; N18.3 Chronic kidney disease, stage 3 (moderate); K29.70 Gastritis, unspecified, without bleeding; I12.9 Hypertensive chronic kidney disease with stage 1 through stage 4 chronic kidney disease, or unspecified chronic kidney disease; E78.00 Pure hypercholesterolemia, unspecified; E78.5 Hyperlipidemia, unspecified; N40.0 Benign prostatic hyperplasia without lower urinary tract symptoms; K21.9 Gastro-esophageal reflux disease without esophagitis; M10.9 Gout, unspecified; E11.21 Type 2 diabetes mellitus with diabetic nephropathy; Z98.84 Bariatric surgery status; J30.2 Other seasonal allergic rhinitis; J01.00 Acute maxillary sinusitis, unspecified; J01.20 Acute ethmoidal sinusitis, unspecified